=== PATIENT | male | born 1940 | race Caucasian/White ===

== ENCOUNTER 2020-10-29 20:23 | Emergency (ER) | payer MEDICARE, BC ==
--- NOTE | 2020-10-29 21:34 | EDM.PDOC ---
ED HPI GENERAL MEDICAL PROBLEM - General Stated Complaint: BLOODY NOSE Time Seen by Provider: 10/29/20 20:50 Source of Information: Reports: Patient, Family History Limitations: Reports: No Limitations - History of Present Illness INITIAL COMMENTS - FREE TEXT/NARRATIVE: c/o nosebleed pt with L nosebleed 1w ago, stopped on its own he has been bleeding all day from the L on ASA and Plavix x 15y no prior h/o nosebleeds coags and plts wnl tonight hgb 12.6 which is likely low altho no comparison BUN/creat 35/1.0, no comparison, also c/w volume loss today uses O2 via NC 24 hours/day no known trauma to nose - Related Data Allergies Allergy/AdvReac Type Severity Reaction Status Date / Time No Known Allergies Allergy Verified 10/29/20 20:36 Home Meds: Home Meds Albuterol [Ventolin HFA] 2 puff .XX Q4H PRN 10/29/20 [History] Arformoterol [Brovana] 15 mcg INH BID 10/29/20 [History] Aspirin [Adult Low Dose Aspirin EC] 81 mg PO DAILY 10/29/20 [History] Baclofen 5 - 10 mg PO TID 10/29/20 [History] Budesonide [Pulmicort] 0.5 mg IH BID 10/29/20 [History] Clopidogrel [Plavix] 75 mg PO DAILY 10/29/20 [History] Ferrous Gluconate 324 mg PO DAILY 10/29/20 [History] Furosemide [Lasix] 40 mg PO DAILY 10/29/20 [History] Losartan [Cozaar] 25 mg DAILY 10/29/20 [History] Pantoprazole [ProTONIX] 40 mg PO BEDTIME 10/29/20 [History] Pioglitazone [Actos] 30 mg PO DAILY 10/29/20 [History] Tiotropium [Spiriva] 18 mcg INH DAILY 10/29/20 [History] atorvaSTATin Calcium [Lipitor] 20 mg PO DAILY 10/29/20 [History] glipiZIDE [Glucotrol XL] 5 mg PO BRK 10/29/20 [History] traZODone 50 mg PO BEDTIME 10/29/20 [History] Past Medical History Cardiovascular History: Reports: Bypass, High Cholesterol, Hypertension, DC Other Cardiovascular History: 3 vessel bypass Respiratory History: Reports: COPD, Other (See Below) Other Respiratory History: Is on O2 @ 2L/NC @ home @ all times. Gastrointestinal History: Reports: GERD, GI Bleed, PUD Musculoskeletal History: Reports: Fracture Other Musculoskeletal History: hx ankle fx Psychiatric History: Reports: Addiction Other Psychiatric History: hx ETOH abuse Endocrine/Metabolic History: Reports: Diabetes, Type II, Obesity/BMI 30+ Hematologic History: Reports: Anemia, Anticoagulation Therapy, Blood Transfusion(s) - Infectious Disease History Infectious Disease History: Reports: Measles, Pertussis (Whooping Cough) - Past Surgical History HEENT Surgical History: Reports: Cataract Surgery Other HEENT Surgeries/Procedures: bilat cataract Cardiovascular Surgical History: Reports: Coronary Artery Bypass Other Cardiovascular Surgeries/Procedures: 3 vessel bypass GI Surgical History: Reports: Appendectomy, EGD Social & Family History - Family History Family Medical History: No Pertinent Family History - Tobacco Use Tobacco Use Status *Q: Former Tobacco User Years of Tobacco use: 60 Used Tobacco, but Quit: Yes Month/Year Tobacco Last Used: 2004 - Caffeine Use Caffeine Use: Reports: Coffee - Recreational Drug Use Recreational Drug Use: No ED ROS ENT - Review of Systems Review Of Systems: See Below Constitutional: Reports: No Symptoms HEENT: Reports: Nosebleed Respiratory: Reports: No Symptoms Endocrine: Reports: No Symptoms GI/Abdominal: Reports: No Symptoms : Reports: No Symptoms Musculoskeletal: Reports: No Symptoms Skin: Reports: No Symptoms Neurological: Reports: No Symptoms Psychiatric: Reports: No Symptoms Hematologic/Lymphatic: Reports: No Symptoms Immunologic: Reports: No Symptoms ED EXAM, ENT - Physical Exam Exam: See Below Exam Limited By: No Limitations General Appearance: Alert, WD/WN, No Apparent Distress Nose: Other (RBC dripping from L nares, nares patent, no swell, septum appears intact, likely superficial ulcer on lateral aspect of L ala, 5.5 Rhinorocket placed with 3 ml air, still dripping, packing placed lateral between ala and balloon, still dripped, 2 ml air removed and packing placed medially and 1.5 ml entered back, clamp placed on nose, present) Mouth/Throat: Normal Inspection Head: Atraumatic, Normocephalic Neck: Normal Inspection, Supple, Non-Tender, Full Range of Motion Respiratory/Chest: No Respiratory Distress, Lungs Clear GI/Abdominal: Soft, Non-Tender Back: Normal Inspection, Full Range of Motion Extremities: Normal Inspection, Normal Range of Motion, Non-Tender, No Pedal Edema Neurological: Alert, Oriented, CN II-XII Intact, Normal Cognition, No Motor/Sensory Deficits Psychiatric: Normal Affect, Normal Mood Skin: Warm, Dry, Intact, Normal Color, No Rash Lymphatic: No Adenopathy Course - Vital Signs Last Recorded V/S: Last Vital Signs Temp 36.7 C 10/29/20 20:23 Pulse 88 10/29/20 21:50 Resp 20 10/29/20 21:50 BP 124/87 10/29/20 21:50 Pulse Ox 91 L 10/29/20 21:50 - Orders/Labs/Meds Labs: Laboratory Tests 10/29/20 10/29/20 10/29/20 Range/Units 20:35 20:35 20:35 WBC 7.8 (3.2-10.1) x10-3/uL RBC 4.19 (3.90-5.90) x10(6)uL Hgb 12.6 L (12.9-17.7) g/dL Hct 39.6 (38.3-50.1) % MCV 94.6 (80.8-98.7) fL MCH 30.1 (27.0-33.3) pg MCHC 31.8 (28.7-35.3) g/dL RDW 14.8 (12.4-15.0) % Plt Count 151 (117-477) x10(3)uL MPV 9.6 (6.7-11.0) fL Neut % (Auto) 66.5 (40.3-71.8) % Lymph % (Auto) 18.2 (15.8-45.3) % [place] % (Auto) 12.3 (5.5-15.2) % Eos % (Auto) 2.6 (0.1-6.8) % Baso % (Auto) 0.4 (0.3-3.8) % Neut # (Auto) 5.2 (1.7-6.9) x10-3/uL Lymph # (Auto) 1.4 (0.5-4.5) x10-3/uL [place] # (Auto) 1.0 (0.0-1.2) x10-3/uL Eos # (Auto) 0.2 (0.0-0.6) x10-3/uL Baso # (Auto) 0.0 (0.0-0.3) x10-3/uL PT 11.2 H (9.0-11.1) sec INR 1.04 (1.00-1.24) Sodium 140 (135-145) mmol/L Potassium 4.8 (3.5-5.3) mmol/L Chloride 103 (100-110) mmol/L Carbon Dioxide 29 (21-32) mmol/L BUN 36 H (7-18) mg/dL Creatinine 1.0 (0.70-1.30) mg/dL Est Cr Clr Drug Dosing 50.40 mL/min Estimated GFR (MDRD) > 60 (>60) BUN/Creatinine Ratio 36.0 H (9-20) Glucose 129 H (80-116) mg/dL Calcium 8.6 (8.6-10.2) mg/dL Total Bilirubin 0.4 (0.1-1.3) mg/dL AST 15 (5-25) IU/L ALT 19 (12-36) U/L Alkaline Phosphatase 73 (56-112) IU/L Total Protein 7.0 (6.0-8.0) g/dL Albumin 3.7 (3.2-4.6) g/dL Globulin 3.3 g/dL Albumin/Globulin Ratio 1.1 - Re-Assessments/Exams Free Text/Narrative Re-Assessment/Exam: 10/29/20 21:34 epistaxis c/w meds (ASA, Plavix) and dry mucosa (winter, O2 via NC) pt cautioned he may need to come back at any time PCP in [place] as it is Fri evening now, pt advised to see PCP in 3d, however cautioned to return to ED at any time if balloon uncomfortable (not now) or bleeding reoccurs Departure - Departure Time of Disposition: 21:35 Disposition: Home, Self-Care 01 Condition: Good Clinical Impression: Left-sided epistaxis - Discharge Information *PRESCRIPTION DRUG MONITORING PROGRAM REVIEWED*: Not Applicable *COPY OF PRESCRIPTION DRUG MONITORING REPORT IN PATIENT [place]IL[place]: Not Applicable Instructions: Nosebleed, Adult Referrals: Arthur Pizarro MD [Primary Care Provider] - Forms: ED Department Discharge Additional Instructions: If there is additional bleeding, hold continuous pressure for 10 minutes. If it is still bleeding return to Emergency Department. If you are having other symptoms including discomfort, return to Emergency Department as sometimes the balloon and packing needs to be adjusted. Continue your oxygen via nasal cannula, put the prongs in your mouth if necessary. See your doctor in 3 days to remove balloon and for further recommendations. Sepsis Event Note (ED) - Evaluation Sepsis Screening Result: No Definite Risk - Focused Exam Vital Signs: Vital Signs Temp Pulse Resp BP Pulse Ox 10/29/20 21:50 88 20 124/87 91 L 10/29/20 20:23 36.7 C 106 H 24 H 156/78 H 91 L
== END 2020-10-29 22:07 | disposition home or self-care (01) ==
LOC: FB.ED 20:23
DX: R04.0 Epistaxis (principal); E78.00 Pure hypercholesterolemia, unspecified; I10 Essential (primary) hypertension; I25.2 Old myocardial infarction; J44.9 Chronic obstructive pulmonary disease, unspecified; K21.9 Gastro-esophageal reflux disease without esophagitis; E11.9 Type 2 diabetes mellitus without complications; E66.9 Obesity, unspecified; Z68.36 Body mass index [BMI] 36.0-36.9, adult; Z79.82 Long term (current) use of aspirin; Z79.02 Long term (current) use of antithrombotics/antiplatelets; Z79.84 Long term (current) use of oral hypoglycemic drugs; Z79.899 Other long term (current) drug therapy; Z95.1 Presence of aortocoronary bypass graft; Z87.891 Personal history of nicotine dependence
CPT/HCPCS: 30903; 36415; 80053; 85025; 85610; 99283

== ENCOUNTER 2021-04-05 11:24 | Observation (INO) | payer MEDICARE, BC ==
[2021-04-05] MEDS ORDERED: Nitroglycerin/D5W 25 MG/250 ML BOTTLE ONE (11:48)
--- NOTE | 2021-04-05 11:53 | EDM.PDOC ---
ED HPI GENERAL MEDICAL PROBLEM - General Stated Complaint: rapid response Time Seen by Provider: 04/05/21 11:24 Source of Information: Reports: Patient, EMS, EMS Notes Reviewed History Limitations: Reports: No Limitations - History of Present Illness INITIAL COMMENTS - FREE TEXT/NARRATIVE: c/o acute resp failure dx RLL mass 1m ago, scheduled to begin chemo tomorrow PET scan 5d ago showed involvement of mediastinum, hilum, abd lymph nodes, liver bone tissue type of lung CA not immediately available pt with inc'd swell LEs x 3d, weak and confused today, no pain, was quite sob, EMS called and pt had RR low 30s, PO 85-90% per EMS, was obtunded and barely alert on arrival at ED Rapid Response called, yet pt is DNR/DNI, 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 fairly quickly with initial pH 7.23 and pCO2 49 pt conversant and making good eye contact 30 min after arrival, talking complete sentences, cognitive intact, answering questions appropriately, pt confirmed that he wanted aggressive management altho both immediate and short term prognosis are quite poor h/o CABG 10y ago, however no PA per and was done will in past year EKG with injury pattern in V1-V3 with IVCD, sinus arrhythmia with rate 70, no comparison family aware that pt has resp/CV/hepatic/renal failure, that he has multisystem organ failure and that he may not survive today, they are okay with keeping him here altho BP has edged up and pt has become more alert nobles placed as 12:55p with no return urine, bladder scan is 0 - Related Data Allergies Allergy/AdvReac Type Severity Reaction Status Date / Time No Known Allergies Allergy Verified 04/05/21 11:48 Home Meds: Home Meds Albuterol [Ventolin HFA] 2 puff .XX Q4H PRN 10/29/20 [History] Arformoterol [Brovana] 15 mcg INH BID 10/29/20 [History] Aspirin [Adult Low Dose Aspirin EC] 81 mg PO DAILY 10/29/20 [History] Baclofen 5 - 10 mg PO TID 10/29/20 [History] Budesonide [Pulmicort] 0.5 mg IH BID 10/29/20 [History] Clopidogrel [Plavix] 75 mg PO DAILY 10/29/20 [History] Ferrous Gluconate 324 mg PO DAILY 10/29/20 [History] Furosemide [Lasix] 40 mg PO DAILY 10/29/20 [History] Losartan [Cozaar] 25 mg DAILY 10/29/20 [History] Pantoprazole [ProTONIX] 40 mg PO BEDTIME 10/29/20 [History] Pioglitazone [Actos] 30 mg PO DAILY 10/29/20 [History] Tiotropium [Spiriva] 18 mcg INH DAILY 10/29/20 [History] atorvaSTATin Calcium [Lipitor] 20 mg PO DAILY 10/29/20 [History] glipiZIDE [Glucotrol XL] 5 mg PO BRK 10/29/20 [History] traZODone 50 mg PO BEDTIME 10/29/20 [History] Past Medical History Cardiovascular History: Reports: Bypass, High Cholesterol, Hypertension, PA Other Cardiovascular History: 3 vessel bypass Respiratory History: Reports: COPD, Other (See Below) Other Respiratory History: Is on O2 @ 2L/NC @ home @ all times. Gastrointestinal History: Reports: GERD, GI Bleed, PUD Musculoskeletal History: Reports: Fracture Other Musculoskeletal History: hx ankle fx Psychiatric History: Reports: Addiction Other Psychiatric History: hx ETOH abuse Endocrine/Metabolic History: Reports: Diabetes, Type II, Obesity/BMI 30+ Hematologic History: Reports: Anemia, Anticoagulation Therapy, Blood Transfusion(s) - Infectious Disease History Infectious Disease History: Reports: Measles, Pertussis (Whooping Cough) - Past Surgical History HEENT Surgical History: Reports: Cataract Surgery Other HEENT Surgeries/Procedures: bilat cataract Cardiovascular Surgical History: Reports: Coronary Artery Bypass Other Cardiovascular Surgeries/Procedures: 3 vessel bypass GI Surgical History: Reports: Appendectomy, EGD Social & Family History - Family History Family Medical History: No Pertinent Family History - Caffeine Use Caffeine Use: Reports: Coffee ED ROS GENERAL - Review of Systems Review Of Systems: See Below Constitutional: Reports: No Symptoms HEENT: Reports: No Symptoms Respiratory: Reports: Shortness of Breath, Sputum. Denies: Pleuritic Chest Pain Cardiovascular: Reports: No Symptoms, Edema. Denies: Chest Pain Endocrine: Reports: No Symptoms GI/Abdominal: Reports: No Symptoms. Denies: Abdominal Pain, Nausea, Vomiting : Reports: No Symptoms Musculoskeletal: Reports: No Symptoms Skin: Reports: No Symptoms Neurological: Reports: No Symptoms Psychiatric: Reports: No Symptoms Hematologic/Lymphatic: Reports: No Symptoms Immunologic: Reports: No Symptoms ED EXAM, GENERAL - Physical Exam Exam: See Below General Appearance: Alert, Other (obtunded on arrival, then alert and O x 3 after one hour, no urine output after 500 ml NS, BP 92/48 at 1:10p without pressors) Ears: Hearing Grossly Normal Nose: Normal Inspection Throat/Mouth: Normal Inspection Head: Atraumatic, Normocephalic Neck: Normal Inspection, Supple. No: Lymphadenopathy (R) Respiratory/Chest: Other (crackles R base up 40%, no retractions, no purse lips, using accessory muscles, fatiguing on arrival, then doing better) GI/Abdominal: Normal Bowel Sounds, Soft, Non-Tender Back Exam: Normal Inspection, Full Range of Motion. No: CVA Tenderness (R), CVA Tenderness (L) Extremities: Other (1+ edema to groin b/l, symmetric, turgor UEs wnl) Neurological: Alert, Oriented, CN II-XII Intact, Normal Cognition, No Motor/Sensory Deficits Psychiatric: Normal Affect, Normal Mood, Other (cheerful, pleasant, optomistic yet also realistic) Skin Exam: Warm, Dry, Intact, Normal Color, No Rash Lymphatic: No Adenopathy #1 Interpretation EKG Date: 04/05/21 Time: 11:13 Rhythm: Other (sinus arrhythmia) Comparison: NA - No Prior EKG EKG Interpretation Comments: no comparison, PRWP, IVCD, inverted t-wave V1, dec'd ST V2-V3 c/w injury vs strain pattern Course - Vital Signs Last Recorded V/S: Last Vital Signs Temp 36.4 C 04/05/21 11:43 Pulse Resp BP Pulse Ox 100 04/05/21 11:45 - Orders/Labs/Meds Orders: Active Orders 24 hr Category Date Time Status Admission Status [Patient Status] [ADT] Routine ADT 04/05/21 15:32 Ordered EKG Documentation Completion [RC] ASDIRECTED Care 04/05/21 11:30 Active EKG Documentation Completion [RC] ASDIRECTED Care 04/05/21 14:15 Ordered Chest 1V Frontal [CR] Stat Exams 04/05/21 11:27 Taken BASIC METABOLIC PANEL,BMP [CHEM] Stat Lab 04/05/21 15:08 Ordered CULTURE BLOOD [BC] Urgent Lab 04/05/21 11:40 Received CULTURE BLOOD [BC] Urgent Lab 04/05/21 12:07 Received CULTURE SPUTUM + SMEAR [RM] Stat Lab 04/05/21 12:20 Ordered LACTIC ACID [CHEM] Stat Lab 04/05/21 15:08 Ordered TROPONIN I [CHEM] Stat Lab 04/05/21 15:08 Ordered URINALYSIS W/MICROSCOPIC [UA W/MICROSCOPIC] [URIN] Stat Lab 04/05/21 11:28 Ordered Dextrose 50% in Water Med 04/05/21 12:52 Active 50 ml IVPUSH ASDIRECTED PRN Glucagon,Human Recombinant [GlucaGen] Med 04/05/21 12:52 Active 1 mg IM ASDIRECTED PRN Sodium Chloride 0.9% [Normal Saline] 500 ml Med 04/05/21 12:36 Active IV .BOLUS Blood Culture x2 Reflex Set [OM.PC] Urgent Oth 04/05/21 11:28 Ordered EKG 12 Lead [EK] Routine Ther 04/05/21 11:28 Ordered EKG 12 Lead [EK] Routine Ther 04/05/21 14:15 Ordered Medication Orders Dextrose/Water (50% Dextrose In Water 50 Ml Syringe) 50 ml IVPUSH ASDIRECTED PRN PRN Reason: Hypoglycemia Glucagon (Glucagon,Human Recombinant 1 Mg Vial) 1 mg IM ASDIRECTED PRN PRN Reason: Hypoglycemia Sodium Chloride (Normal Saline) 500 mls @ 999 drops/hr IV .BOLUS ONE Stop: 04/05/21 20:06 Last Admin: 04/05/21 12:36 Dose: 999 drops/hr Documented by: Labs: Laboratory Tests 04/05/21 04/05/21 04/05/21 Range/Units 11:40 11:40 11:40 WBC 13.3 H (3.2-10.1) x10-3/uL RBC 4.56 (3.90-5.90) x10(6)uL Hgb 13.6 (12.9-17.7) g/dL Hct 42.2 (38.3-50.1) % MCV 92.4 (80.8-98.7) fL MCH 29.7 (27.0-33.3) pg MCHC 32.2 (28.7-35.3) g/dL RDW 14.7 (12.4-15.0) % Plt Count 284 (117-477) x10(3)uL MPV 9.5 (6.7-11.0) fL Add Manual Diff Yes Neutrophils % (Manual) 90 H (46-82) % Lymphocytes % (Manual) 4 L (13-37) % Monocytes % (Manual) 6 (4-12) % PT 17.0 H (9.0-11.1) sec INR 1.62 H (1.00-1.24) POC VBG pH (7.32-7.43) pH Units POC VBG pCO2 (41-51) mmHg POC VBG HCO3 (21-29) mmol/L VBG Base Excess (-2-3) mmol/L O2 Delivery Device Sodium 136 (135-145) mmol/L Potassium 7.3 H* D (3.5-5.3) mmol/L Chloride 94 L D (100-110) mmol/L Carbon Dioxide 20 L (21-32) mmol/L BUN 103 H D (7-18) mg/dL Creatinine 5.8 H* (0.70-1.30) mg/dL Est Cr Clr Drug Dosing TNP Estimated GFR (MDRD) 9 L (>60) BUN/Creatinine Ratio 17.8 (9-20) Glucose 158 H (80-116) mg/dL Lactic Acid (0.4-2.0) mmol/L Calcium 8.8 (8.6-10.2) mg/dL Total Bilirubin 1.3 (0.1-1.3) mg/dL AST 489 H* D (5-25) IU/L ALT 195 H* D (12-36) U/L Alkaline Phosphatase 378 H (56-112) IU/L Troponin I (4.0-60.3) pg/mL C-Reactive Protein (0.5-0.9) mg/dL NT-Pro-B Natriuret Pep (<=450) pg/mL Total Protein 7.4 (6.0-8.0) g/dL Albumin 2.6 L (3.2-4.6) g/dL Globulin 4.8 g/dL Albumin/Globulin Ratio 0.5 04/05/21 04/05/21 04/05/21 Range/Units 11:40 12:07 12:10 WBC (3.2-10.1) x10-3/uL RBC (3.90-5.90) x10(6)uL Hgb (12.9-17.7) g/dL Hct (38.3-50.1) % MCV (80.8-98.7) fL MCH (27.0-33.3) pg MCHC (28.7-35.3) g/dL RDW (12.4-15.0) % Plt Count (117-477) x10(3)uL MPV (6.7-11.0) fL Add Manual Diff Neutrophils % (Manual) (46-82) % Lymphocytes % (Manual) (13-37) % Monocytes % (Manual) (4-12) % PT (9.0-11.1) sec INR (1.00-1.24) POC VBG pH 7.23 L* (7.32-7.43) pH Units POC VBG pCO2 49 (41-51) mmHg POC VBG HCO3 21 (21-29) mmol/L VBG Base Excess -7 L (-2-3) mmol/L O2 Delivery Device Non rebr mask Sodium (135-145) mmol/L Potassium (3.5-5.3) mmol/L Chloride (100-110) mmol/L Carbon Dioxide (21-32) mmol/L BUN (7-18) mg/dL Creatinine (0.70-1.30) mg/dL Est Cr Clr Drug Dosing Estimated GFR (MDRD) (>60) BUN/Creatinine Ratio (9-20) Glucose (80-116) mg/dL Lactic Acid 4.7 H* (0.4-2.0) mmol/L Calcium (8.6-10.2) mg/dL Total Bilirubin (0.1-1.3) mg/dL AST (5-25) IU/L ALT (12-36) U/L Alkaline Phosphatase (56-112) IU/L Troponin I 546.5 H* (4.0-60.3) pg/mL C-Reactive Protein 40.4 H* (0.5-0.9) mg/dL NT-Pro-B Natriuret Pep 04957 H* (<=450) pg/mL Total Protein (6.0-8.0) g/dL Albumin (3.2-4.6) g/dL Globulin g/dL Albumin/Globulin Ratio 04/05/ Range/Units 13:08 WBC (3.2-10.1) x10-3/uL RBC (3.90-5.90) x10(6)uL Hgb (12.9-17.7) g/dL Hct (38.3-50.1) % MCV (80.8-98.7) fL MCH (27.0-33.3) pg MCHC (28.7-35.3) g/dL RDW (12.4-15.0) % Plt Count (117-477) x10(3)uL MPV (6.7-11.0) fL Add Manual Diff Neutrophils % (Manual) (46-82) % Lymphocytes % (Manual) (13-37) % Monocytes % (Manual) (4-12) % PT (9.0-11.1) sec INR (1.00-1.24) POC VBG pH 7.22 L* (7.32-7.43) pH Units POC VBG pCO2 58 H (41-51) mmHg POC VBG HCO3 23 (21-29) mmol/L VBG Base Excess -5 L (-2-3) mmol/L O2 Delivery Device Non rebr mask Sodium (135-145) mmol/L Potassium (3.5-5.3) mmol/L Chloride (100-110) mmol/L Carbon Dioxide (21-32) mmol/L BUN (7-18) mg/dL Creatinine (0.70-1.30) mg/dL Est Cr Clr Drug Dosing Estimated GFR (MDRD) (>60) BUN/Creatinine Ratio (9-20) Glucose (80-116) mg/dL Lactic Acid (0.4-2.0) mmol/L Calcium (8.6-10.2) mg/dL Total Bilirubin (0.1-1.3) mg/dL AST (5-25) IU/L ALT (12-36) U/L Alkaline Phosphatase (56-112) IU/L Troponin I (4.0-60.3) pg/mL C-Reactive Protein (0.5-0.9) mg/dL NT-Pro-B Natriuret Pep (<=450) pg/mL Total Protein (6.0-8.0) g/dL Albumin (3.2-4.6) g/dL Globulin g/dL Albumin/Globulin Ratio Meds: Medications Generic Name Dose Route Start Last Admin Trade Name Enzo PRN Reason Stop Dose Admin Dextrose/Water 50 ml 04/05/21 12:52 50% Dextrose In Water 50 Ml Syringe IVPUSH ASDIRECTED PRN Hypoglycemia Glucagon 1 mg 04/05/21 12:52 Glucagon,Human Recombinant 1 Mg Vial IM ASDIRECTED PRN Hypoglycemia Sodium Chloride 500 mls @ 999 drops/hr 04/05/21 12:36 04/05/21 12:36 Normal Saline IV 04/05/21 20:06 999 drops/hr .BOLUS ONE Administration Discontinued Medications Generic Name Dose Route Start Last Admin Trade Name Enzo PRN Reason Stop Dose Admin Dextrose/Water 50 ml 04/05/21 12:51 04/05/21 13:45 50% Dextrose In Water 50 Ml Syringe IVPUSH 04/05/21 12:52 50 ml ONETIME ONE Administration Nitroglycerin/Dextrose Confirm 04/05/21 11:48 Nitroglycerin 25 Mg/D5w 250 Ml Administered 04/05/21 11:49 Dose 25 mg in 250 mls @ as directed .ROUTE .STK-MED ONE Piperacillin Sod/Tazobactam 100 mls @ 200 mls/hr 04/05/21 12:18 04/05/21 12:39 Sod 4.5 gm/ Sodium Chloride IV 04/05/21 12:47 200 mls/hr NOW ONE Administration Sodium Chloride 500 mls @ 500 mls/hr 04/05/21 13:01 04/05/21 13:01 Normal Saline IV 04/05/21 14:00 500 mls/hr .BOLUS ONE Administration Sodium Chloride 1,000 mls @ 999 mls/hr 04/05/21 13:17 04/05/21 13:45 Normal Saline IV 04/05/21 14:17 999 mls/hr .BOLUS ONE Administration Insulin Human Regular 10 unit 04/05/21 12:52 04/05/21 13:45 Insulin Regular, Human 100 Units/Ml 3 Ml Vial IV 04/05/21 12:53 10 units ONETIME ONE Administration Lidocaine HCl Confirm 04/05/21 12:51 Lidocaine 2% Hcl 6 Ml Jel.Pf.Cassie Administered 04/05/21 12:52 Dose 6 ml .ROUTE .STK-MED ONE Sodium Polystyrene Sulfonate 15 gm 04/05/21 13:42 04/05/21 13:45 Sodium Polystyrene Sulfonate 15 Gm/60 Ml Susp 60 Ml Bot PO 04/05/21 13:43 15 gm ONETIME STA Administration - Re-Assessments/Exams Free Text/Narrative Re-Assessment/Exam: 04/05/21 12:52 pt with multisystem organ failure, pt with very poor outlook and and large supportive family (niece, nephew, sister at bedside) that pt was not expected to survive and may not be stable enough to transfer to [facility] bicycle inspector at [facility] was able to reach tab builder, however she was called away to a code and I just spoke with Dr Aguero from ED, he will speak with tab builder when she is available and they will call back 04/05/21 15:27 bicycle inspector at [facility] called back an hour ago to say that Dr Etienne tab builder has had multiple in-house emergencies and has not been able to return my call, bicycle inspector suggested admitting pt directly to floor as pt has stabilized somewhat altho still no UA after 2 liters NS pt has been alert and conversant, multiple family members are present asked again re admitting him here and Dr Sanders accepted pt to obs bed with plan on going on hospice tomorrow while pt has stabilized, his multi-system organ failure is not reversible, still anuric pt d/w [facility] ED doc Dr Perez 3.5h ago who asked us to stabilize pt here while waiting to here from hospitalist, 1h ago the [facility] bicycle inspector was going to get him on the phone a 2nd time put he did not picking tech after holding for 5 minutes and has not called back in the past hour as pt's condition is terminal and is requesting admission here, will proceed accordingly, he continues to be DNR/DNI 04/05/21 15:33 pt did just produce 10 ml of urine, sent to lab for u/a Departure - Departure Time of Disposition: 15:35 Disposition: Refer to Observation Condition: Critical Clinical Impression: Acute respiratory failure, Acute respiratory acidosis, Hypercapnia, Multisystem organ failure, RLL pneumonia, Metastatic lung cancer (metastasis from lung to other site), NSTEMI (non-ST elevated myocardial infarction), Renal failure, acute, Hyperkalemia, Hypovolemic shock, Elevated INR, CHF exacerbation - Discharge Information *PRESCRIPTION DRUG MONITORING PROGRAM REVIEWED*: Not Applicable *COPY OF PRESCRIPTION DRUG MONITORING REPORT IN PATIENT CAMILO: Not Applicable Referrals: PCP,Not In Area [Primary Care Provider] - Sepsis Event Note (ED) - Evaluation Sepsis Screening Result: No Definite Risk - Focused Exam Vital Signs: Vital Signs Temp Pulse Ox 04/05/21 11:45 100 04/05/21 11:43 36.4 C - My Orders Last 24 Hours: My Active Orders 04/05/21 11:27 Chest 1V Frontal [CR] Stat 04/05/21 11:28 URINALYSIS W/MICROSCOPIC [UA W/MICROSCOPIC] [URIN] Stat Blood Culture x2 Reflex Set [OM.PC] Urgent EKG 12 Lead [EK] Routine 04/05/21 11:30 EKG Documentation Completion [RC] ASDIRECTED 04/05/21 11:40 CULTURE BLOOD [BC] Urgent 04/05/21 12:07 CULTURE BLOOD [BC] Urgent 04/05/21 12:20 CULTURE SPUTUM + SMEAR [RM] Stat 04/05/21 12:36 Sodium Chloride 0.9% [Normal Saline] 500 ml IV .BOLUS 04/05/21 12:52 Dextrose 50% in Water 50 ml IVPUSH ASDIRECTED PRN Glucagon,Human Recombinant [GlucaGen] 1 mg IM ASDIRECTED PRN 04/05/21 14:15 EKG Documentation Completion [RC] ASDIRECTED EKG 12 Lead [EK] Routine 04/05/21 15:08 BASIC METABOLIC PANEL,BMP [CHEM] Stat LACTIC ACID [CHEM] Stat TROPONIN I [CHEM] Stat 04/05/21 15:32 Admission Status [Patient Status] [ADT] Routine - Assessment/Plan Last 24 Hours: My Active Orders 04/05/21 11:27 Chest 1V Frontal [CR] Stat 04/05/21 11:28 URINALYSIS W/MICROSCOPIC [UA W/MICROSCOPIC] [URIN] Stat Blood Culture x2 Reflex Set [OM.PC] Urgent EKG 12 Lead [EK] Routine 04/05/21 11:30 EKG Documentation Completion [RC] ASDIRECTED 04/05/21 11:40 CULTURE BLOOD [BC] Urgent 04/05/21 12:07 CULTURE BLOOD [BC] Urgent 04/05/21 12:20 CULTURE SPUTUM + SMEAR [RM] Stat 04/05/21 12:36 Sodium Chloride 0.9% [Normal Saline] 500 ml IV .BOLUS 04/05/21 12:52 Dextrose 50% in Water 50 ml IVPUSH ASDIRECTED PRN Glucagon,Human Recombinant [GlucaGen] 1 mg IM ASDIRECTED PRN 04/05/21 14:15 EKG Documentation Completion [RC] ASDIRECTED EKG 12 Lead [EK] Routine 04/05/21 15:08 BASIC METABOLIC PANEL,BMP [CHEM] Stat LACTIC ACID [CHEM] Stat TROPONIN I [CHEM] Stat 04/05/21 15:32 Admission Status [Patient Status] [ADT] Routine
[2021-04-05] MEDS ORDERED: Piperacillin/Tazobactam 4.5 GM in Sodium Chloride 0.9% 100 ML IV ONE (12:18)
[2021-04-05 12:27] LABS: BASE EXCESS VENOUS,POC -7 mmol/L (-2-3); HCO3 VENOUS,POC 21 mmol/L (21-29); PCO2 VENOUS,POC 49 mmHg (41-51); PH VENOUS,POC 7.23 pH Units (7.32-7.43)
[2021-04-05] MEDS ORDERED: Sodium Chloride 0.9% 500 ML IV ONE ×2 (12:36→13:01)
[2021-04-05] MEDS ORDERED: Lidocaine 2% HCl 6 ML JEL.PF.APP ONE (12:51)
[2021-04-05] MEDS ORDERED: 50% Dextrose in Water 50 ML Syringe IVPUSH ONE (12:51)
[2021-04-05] MEDS ORDERED: Sodium Polystyrene Sulfonate 15 GM/60 ML Susp 60 ML Bot PO ONE (12:51)
[2021-04-05] MEDS ORDERED: 50% Dextrose in Water 50 ML Syringe IVPUSH PRN (12:52)
[2021-04-05] MEDS ORDERED: Insulin Regular, Human 100 Units/ML 3 ML Vial IV ONE (12:52)
[2021-04-05] MEDS ORDERED: Glucagon,Human Recombinant 1 MG Vial IM PRN (12:52)
[2021-04-05 13:16] LABS: BASE EXCESS VENOUS,POC -5 mmol/L (-2-3); HCO3 VENOUS,POC 23 mmol/L (21-29); PCO2 VENOUS,POC 58 mmHg (41-51); PH VENOUS,POC 7.22 pH Units (7.32-7.43)
[2021-04-05] MEDS ORDERED: Sodium Chloride 0.9% 1,000 ML IV ONE (13:17)
[2021-04-05] MEDS ORDERED: Sodium Polystyrene Sulfonate 15 GM/60 ML Susp 60 ML Bot PO STA (13:42)
--- NOTE | 2021-04-05 15:06 | PCM.SN.2 ---
- Free Text/Narrative Note: ANESTHESIA SERVICES Date: 04/05/2021 Time: 1131 to 1145 Dx: Acute respiratory distress, Hypoxia and Very Poor Venous Access Rx: Placement of a Peripheral Venous catheter and assistance with BiPap implementation. I was called to the ED department for a Rapid Response Alert. I found a vein in his right ACF area and prepped the site with alcohol wipes X 3. Using a BD Insyte Autoguard BC Winged 20 Ga. X 1.16 In., I inserted and advanced the catheter times one attempt. I was able to draw off 12 ml's of blood for lab work. The catheter was flushed easily and an Op-Site dressing was applied. I did assist the ED RN with placement of the BiPap mask and trouble shoot for leaks. The patient did respond quite well to this. Rhett King CRNA, A
[2021-04-05] MEDS ORDERED: Lanolin/Mineral Oil/Petrolatum Ophth Oint 3.5 GM Tube EYEBOTH PRN (16:07)
[2021-04-05] MEDS ORDERED: Hyoscyamine 0.125 MG Tab.SL SL PRN (16:07)
[2021-04-05] MEDS ORDERED: Acetaminophen 325 MG Tab PO PRN (16:07)
[2021-04-05] MEDS ORDERED: Ondansetron 4 MG Tab.DIS PO PRN (16:07)
[2021-04-05] MEDS ORDERED: Albuterol/Ipratropium 3.0-0.5 MG/3 ML Neb Soln INH PRN (16:20)
--- NOTE | 2021-04-05 16:57 | PCM.HP.2 ---
H&P History of Present Illness - General Date of Service: 04/05/21 Admit Problem/Dx: Admission Diagnosis/Problem Admission Diagnosis/Problem Respiratory failure with hypercapnia Source of Information: Patient, Provider - History of Present Illness Initial Comments - Free Text/Narative: Wily presented to ER today for worsening shortness of breath and back pain, rapid response was called by EMS enroute and was in acute respiratory failure, heart/liver and kidney failure. ABG showed ph 7.2, K 7.7, Cr 5.2, Troponin 546, proBNP 93347, WBC 13.3. EKG showed injury pattern in V1-V3, no comparison. He was due to start chemo today for RLL lung mass 1 month ago, PET scan 5 days ago showed involvement of mediastinum, hilum, abdominal lymph nodes, liver and bone. Had more shortness of breath, leg swelling and back pain for the past 3 days, no appetite, not eating. He did take his medications today. Yoli was placed in ER, has not had a bowel movement today. He is DNR/DNI, he was in ER most of day, with multiorgan failure and lung cancer with mets, he and his requested to stay here and go on hospice. Hospice was contacted and they will come in tomorrow to do initial visit with Wily and his family. - Related Data Allergies/Adverse Reactions: Allergies Allergy/AdvReac Type Severity Reaction Status Date / Time No Known Allergies Allergy Verified 04/05/21 11:48 Home Medications: Home Meds Albuterol [Ventolin HFA] 2 puff .XX Q4H PRN 10/29/20 [History] Arformoterol [Brovana] 15 mcg INH BID 10/29/20 [History] Aspirin [Adult Low Dose Aspirin EC] 81 mg PO DAILY 10/29/20 [History] Baclofen 5 - 10 mg PO TID 10/29/20 [History] Budesonide [Pulmicort] 0.5 mg IH BID 10/29/20 [History] Clopidogrel [Plavix] 75 mg PO DAILY 10/29/20 [History] Ferrous Gluconate 324 mg PO DAILY 10/29/20 [History] Furosemide [Lasix] 40 mg PO DAILY 10/29/20 [History] Losartan [Cozaar] 25 mg DAILY 10/29/20 [History] Pantoprazole [ProTONIX] 40 mg PO BEDTIME 10/29/20 [History] Pioglitazone [Actos] 30 mg PO DAILY 10/29/20 [History] Tiotropium [Spiriva] 18 mcg INH DAILY 10/29/20 [History] atorvaSTATin Calcium [Lipitor] 20 mg PO DAILY 10/29/20 [History] glipiZIDE [Glucotrol XL] 5 mg PO BRK 10/29/20 [History] traZODone 50 mg PO BEDTIME 10/29/20 [History] Past Medical History Cardiovascular History: Reports: Bypass, High Cholesterol, Hypertension, [place] Other Cardiovascular History: 3 vessel bypass Respiratory History: Reports: COPD, Other (See Below) Other Respiratory History: Is on O2 @ 2L/NC @ home @ all times. Gastrointestinal History: Reports: GERD, GI Bleed, PUD Musculoskeletal History: Reports: Fracture Other Musculoskeletal History: hx ankle fx Psychiatric History: Reports: Addiction Other Psychiatric History: hx ETOH abuse Endocrine/Metabolic History: Reports: Diabetes, Type II, Obesity/BMI 30+ Hematologic History: Reports: Anemia, Anticoagulation Therapy, Blood Transfusion(s) Oncologic (Cancer) History: Reports: Lung - Infectious Disease History Infectious Disease History: Reports: Measles, Pertussis (Whooping Cough) - Past Surgical History HEENT Surgical History: Reports: Cataract Surgery Other HEENT Surgeries/Procedures: bilat cataract Cardiovascular Surgical History: Reports: Coronary Artery Bypass Other Cardiovascular Surgeries/Procedures: 3 vessel bypass GI Surgical History: Reports: Appendectomy, EGD Social & Family History - Family History Family Medical History: No Pertinent Family History - Caffeine Use Caffeine Use: Reports: Coffee H&P Review of Systems - Review of Systems: Review Of Systems: See Below Pulmonary: Reports: Shortness of Breath Cardiovascular: Reports: Chest Pain, Edema Gastrointestinal: Reports: No Symptoms Genitourinary: Reports: No Symptoms Musculoskeletal: Reports: Back Pain Skin: Reports: Mottled Hematologic/Lymphatic: Reports: Easy Bruising Exam - Exam Exam: See Below - Vital Signs Vital Signs: Last Vital Signs Temp 97.6 F 04/05/21 11:43 Pulse Resp BP Pulse Ox 100 04/05/21 11:45 Weight: 238 lb - Exam Quality Assessment: Supplemental Oxygen, Urinary Catheter General: Alert, Oriented, Cooperative, Moderate Distress HEENT: PERRLA, Conjunctiva Clear, EOMI, Hearing Intact, Mucosa Moist & Sigel Neck: Trachea Midline Lungs: Decreased Breath Sounds, Crackles. No: Normal Respiratory Effort (increased), Wheezing Cardiovascular: Regular Rate, Regular Rhythm (distant) GI/Abdominal Exam: Normal Bowel Sounds, Soft, Non-Tender, No Distention (Male) Exam: Deferred Rectal (Males) Exam: Deferred Extremities: Pedal Edema, Mottled Peripheral Pulses: 2+: Radial (L), Radial (R) - Patient Data Lab Results Last 24 hrs: Laboratory Results - last 24 hr 04/05/21 04/05/21 04/05/21 Range/Units 11:40 11:40 11:40 WBC 13.3 H (3.2-10.1) x10-3/uL RBC 4.56 (3.90-5.90) x10(6)uL Hgb 13.6 (12.9-17.7) g/dL Hct 42.2 (38.3-50.1) % MCV 92.4 (80.8-98.7) fL MCH 29.7 (27.0-33.3) pg MCHC 32.2 (28.7-35.3) g/dL RDW 14.7 (12.4-15.0) % Plt Count 284 (117-477) x10(3)uL MPV 9.5 (6.7-11.0) fL Add Manual Diff Yes Neutrophils % (Manual) 90 H (46-82) % Lymphocytes % (Manual) 4 L (13-37) % Monocytes % (Manual) 6 (4-12) % PT 17.0 H (9.0-11.1) sec INR 1.62 H (1.00-1.24) POC VBG pH (7.32-7.43) pH Units POC VBG pCO2 (41-51) mmHg POC VBG HCO3 (21-29) mmol/L VBG Base Excess (-2-3) mmol/L O2 Delivery Device Sodium 136 (135-145) mmol/L Potassium 7.3 H* D (3.5-5.3) mmol/L Chloride 94 L D (100-110) mmol/L Carbon Dioxide 20 L (21-32) mmol/L BUN 103 H D (7-18) mg/dL Creatinine 5.8 H* (0.70-1.30) mg/dL Est Cr Clr Drug Dosing TNP Estimated GFR (MDRD) 9 L (>60) BUN/Creatinine Ratio 17.8 (9-20) Glucose 158 H (80-116) mg/dL Lactic Acid (0.4-2.0) mmol/L Calcium 8.8 (8.6-10.2) mg/dL Total Bilirubin 1.3 (0.1-1.3) mg/dL AST 489 H* D (5-25) IU/L ALT 195 H* D (12-36) U/L Alkaline Phosphatase 378 H (56-112) IU/L Troponin I (4.0-60.3) pg/mL C-Reactive Protein (0.5-0.9) mg/dL NT-Pro-B Natriuret Pep (<=450) pg/mL Total Protein 7.4 (6.0-8.0) g/dL Albumin 2.6 L (3.2-4.6) g/dL Globulin 4.8 g/dL Albumin/Globulin Ratio 0.5 Urine Color (YELLOW) Urine Appearance (CLEAR) Urine pH (5.0-6.5) Ur Specific [place] (1.010-1.025) Urine Protein (NEGATIVE) mg/dL Urine Glucose (UA) (NORMAL) mg/dL Urine Ketones (NEGATIVE) mg/dL Urine Occult Blood (NEGATIVE) Urine Nitrite (NEGATIVE) Urine Bilirubin (NEGATIVE) Urine Urobilinogen (NEGATIVE) mg/dL Ur Leukocyte Esterase (NEGATIVE) U Hyaline Cast (Auto) (NS) Urine RBC (0-5) Urine WBC (0-5) Ur Squamous Epith Cells (NS,R,O) Urine Bacteria (NS) 04/05/21 04/05/21 04/05/21 Range/Units 11:40 12:07 12:10 WBC (3.2-10.1) x10-3/uL RBC (3.90-5.90) x10(6)uL Hgb (12.9-17.7) g/dL Hct (38.3-50.1) % MCV (80.8-98.7) fL MCH (27.0-33.3) pg MCHC (28.7-35.3) g/dL RDW (12.4-15.0) % Plt Count (117-477) x10(3)uL MPV (6.7-11.0) fL Add Manual Diff Neutrophils % (Manual) (46-82) % Lymphocytes % (Manual) (13-37) % Monocytes % (Manual) (4-12) % PT (9.0-11.1) sec INR (1.00-1.24) POC VBG pH 7.23 L* (7.32-7.43) pH Units POC VBG pCO2 49 (41-51) mmHg POC VBG HCO3 21 (21-29) mmol/L VBG Base Excess -7 L (-2-3) mmol/L O2 Delivery Device Non rebr mask Sodium (135-145) mmol/L Potassium (3.5-5.3) mmol/L Chloride (100-110) mmol/L Carbon Dioxide (21-32) mmol/L BUN (7-18) mg/dL Creatinine (0.70-1.30) mg/dL Est Cr Clr Drug Dosing Estimated GFR (MDRD) (>60) BUN/Creatinine Ratio (9-20) Glucose (80-116) mg/dL Lactic Acid 4.7 H* (0.4-2.0) mmol/L Calcium (8.6-10.2) mg/dL Total Bilirubin (0.1-1.3) mg/dL AST (5-25) IU/L ALT (12-36) U/L Alkaline Phosphatase (56-112) IU/L Troponin I 546.5 H* (4.0-60.3) pg/mL C-Reactive Protein 40.4 H* (0.5-0.9) mg/dL NT-Pro-B Natriuret Pep 18005 H* (<=450) pg/mL Total Protein (6.0-8.0) g/dL Albumin (3.2-4.6) g/dL Globulin g/dL Albumin/Globulin Ratio Urine Color (YELLOW) Urine Appearance (CLEAR) Urine pH (5.0-6.5) Ur Specific [place] (1.010-1.025) Urine Protein (NEGATIVE) mg/dL Urine Glucose (UA) (NORMAL) mg/dL Urine Ketones (NEGATIVE) mg/dL Urine Occult Blood (NEGATIVE) Urine Nitrite (NEGATIVE) Urine Bilirubin (NEGATIVE) Urine Urobilinogen (NEGATIVE) mg/dL Ur Leukocyte Esterase (NEGATIVE) U Hyaline Cast (Auto) (NS) Urine RBC (0-5) Urine WBC (0-5) Ur Squamous Epith Cells (NS,R,O) Urine Bacteria (NS) 04/05/21 04/05/21 04/05/21 Range/Units 13:08 15:27 15:27 WBC (3.2-10.1) x10-3/uL RBC (3.90-5.90) x10(6)uL Hgb (12.9-17.7) g/dL Hct (38.3-50.1) % MCV (80.8-98.7) fL MCH (27.0-33.3) pg MCHC (28.7-35.3) g/dL RDW (12.4-15.0) % Plt Count (117-477) x10(3)uL MPV (6.7-11.0) fL Add Manual Diff Neutrophils % (Manual) (46-82) % Lymphocytes % (Manual) (13-37) % Monocytes % (Manual) (4-12) % PT (9.0-11.1) sec INR (1.00-1.24) POC VBG pH 7.22 L* (7.32-7.43) pH Units POC VBG pCO2 58 H (41-51) mmHg POC VBG HCO3 23 (21-29) mmol/L VBG Base Excess -5 L (-2-3) mmol/L O2 Delivery Device Non rebr mask Sodium 136 (135-145) mmol/L Potassium 6.6 H* (3.5-5.3) mmol/L Chloride 96 L (100-110) mmol/L Carbon Dioxide 24 (21-32) mmol/L BUN 98 H (7-18) mg/dL Creatinine 5.2 H* (0.70-1.30) mg/dL Est Cr Clr Drug Dosing TNP Estimated GFR (MDRD) 11 L (>60) BUN/Creatinine Ratio 18.8 (9-20) Glucose 237 H (80-116) mg/dL Lactic Acid (0.4-2.0) mmol/L Calcium 7.8 L (8.6-10.2) mg/dL Total Bilirubin (0.1-1.3) mg/dL AST (5-25) IU/L ALT (12-36) U/L Alkaline Phosphatase (56-112) IU/L Troponin I 341.3 H* (4.0-60.3) pg/mL C-Reactive Protein (0.5-0.9) mg/dL NT-Pro-B Natriuret Pep (<=450) pg/mL Total Protein (6.0-8.0) g/dL Albumin (3.2-4.6) g/dL Globulin g/dL Albumin/Globulin Ratio Urine Color (YELLOW) Urine Appearance (CLEAR) Urine pH (5.0-6.5) Ur Specific [place] (1.010-1.025) Urine Protein (NEGATIVE) mg/dL Urine Glucose (UA) (NORMAL) mg/dL Urine Ketones (NEGATIVE) mg/dL Urine Occult Blood (NEGATIVE) Urine Nitrite (NEGATIVE) Urine Bilirubin (NEGATIVE) Urine Urobilinogen (NEGATIVE) mg/dL Ur Leukocyte Esterase (NEGATIVE) U Hyaline Cast (Auto) (NS) Urine RBC (0-5) Urine WBC (0-5) Ur Squamous Epith Cells (NS,R,O) Urine Bacteria (NS) 04/05/21 04/05/21 Range/Units 15:27 15:33 WBC (3.2-10.1) x10-3/uL RBC (3.90-5.90) x10(6)uL Hgb (12.9-17.7) g/dL Hct (38.3-50.1) % MCV (80.8-98.7) fL MCH (27.0-33.3) pg MCHC (28.7-35.3) g/dL RDW (12.4-15.0) % Plt Count (117-477) x10(3)uL MPV (6.7-11.0) fL Add Manual Diff Neutrophils % (Manual) (46-82) % Lymphocytes % (Manual) (13-37) % Monocytes % (Manual) (4-12) % PT (9.0-11.1) sec INR (1.00-1.24) POC VBG pH (7.32-7.43) pH Units POC VBG pCO2 (41-51) mmHg POC VBG HCO3 (21-29) mmol/L VBG Base Excess (-2-3) mmol/L O2 Delivery Device Sodium (135-145) mmol/L Potassium (3.5-5.3) mmol/L Chloride (100-110) mmol/L Carbon Dioxide (21-32) mmol/L BUN (7-18) mg/dL Creatinine (0.70-1.30) mg/dL Est Cr Clr Drug Dosing Estimated GFR (MDRD) (>60) BUN/Creatinine Ratio (9-20) Glucose (80-116) mg/dL Lactic Acid 2.5 H* (0.4-2.0) mmol/L Calcium (8.6-10.2) mg/dL Total Bilirubin (0.1-1.3) mg/dL AST (5-25) IU/L ALT (12-36) U/L Alkaline Phosphatase (56-112) IU/L Troponin I (4.0-60.3) pg/mL C-Reactive Protein (0.5-0.9) mg/dL NT-Pro-B Natriuret Pep (<=450) pg/mL Total Protein (6.0-8.0) g/dL Albumin (3.2-4.6) g/dL Globulin g/dL Albumin/Globulin Ratio Urine Color Yellow (YELLOW) Urine Appearance Slightly cloudy (CLEAR) Urine pH 5.0 (5.0-6.5) Ur Specific [place] 1.015 (1.010-1.025) Urine Protein 30 H (NEGATIVE) mg/dL Urine Glucose (UA) Normal (NORMAL) mg/dL Urine Ketones Negative (NEGATIVE) mg/dL Urine Occult Blood Moderate H (NEGATIVE) Urine Nitrite Negative (NEGATIVE) Urine Bilirubin Small H (NEGATIVE) Urine Urobilinogen Normal (NEGATIVE) mg/dL Ur Leukocyte Esterase Negative (NEGATIVE) U Hyaline Cast (Auto) Few H (NS) Urine RBC 5-10 H (0-5) Urine WBC 5-10 H (0-5) Ur Squamous Epith Cells Few H (NS,R,O) Urine Bacteria Many H (NS) Result Diagrams: 04/05/21 11:40 04/05/21 15:27 Sepsis Event Note - Evaluation Sepsis Screening Result: No Definite Risk - Focused Exam Vital Signs: Vital Signs Temp Pulse Ox 04/05/21 11:45 100 04/05/21 11:43 97.6 F *Q Meaningful Use (ADM) - VTE *Q VTE Mechanical Contraindications *Q: At Risk for Falls - VTE Risk Assess *Q Each Risk Factor Represents 1 Point: None Total Score 1 Point Risk Factors: 0 Each Risk Factor Represents 2 Points: None Total Score 2 Point Risk Factors: 0 Each Risk Factor Represents 3 Points: Age 75 Years or Greater Total Score 3 Point Risk Factors: 3 Each Risk Factor Represents 5 Points: None Total Score 5 Point Risk Factors: 0 Venous Thromboembolism Risk Factor Score *Q: 3 - Problem List (1) Metastatic lung cancer (metastasis from lung to other site) SNOMED Code(s): 58201104, 024747667 ICD Code: C34.90 - MALIGNANT NEOPLASM OF UNSP PART OF UNSP BRONCHUS OR LUNG Status: Acute Current Visit: Yes Onset Date: ~02/2021 Qualifiers: Laterality: right Qualified Code(s): C34.91 - Malignant neoplasm of unspecified part of right bronchus or lung (2) Multisystem organ failure SNOMED Code(s): 11313567 ICD Code: [id number] - Status: Acute Current Visit: Yes (3) NSTEMI (non-ST elevated myocardial infarction) SNOMED Code(s): 70930137 ICD Code: I21.4 - NON-ST ELEVATION (NSTEMI) MYOCARDIAL INFARCTION Status: Acute Current Visit: Yes Problem List Initiated/Reviewed/Updated: Yes Orders Last 24hrs: Active Orders 24 hr Category Date Time Status Admission Status [Patient Status] [ADT] Routine ADT 04/05/21 15:32 Active Activity as Tolerated [RC] .Routine Care 04/05/21 16:15 Ordered Communication Order [RC] Per Unit Routine Care 04/05/21 16:17 Ordered EKG Documentation Completion [RC] ASDIRECTED Care 04/05/21 11:30 Active EKG Documentation Completion [RC] ASDIRECTED Care 04/05/21 14:15 Active Oxygen Therapy [RC] PRN Care 04/05/21 16:10 Ordered Turn and Reposition [RC] Q2HR Care 04/05/21 16:17 Ordered Regular Diet [DIET] Diet 04/05/21 Dinner Ordered Chest 1V Frontal [CR] Stat Exams 04/05/21 11:27 Taken CULTURE BLOOD [BC] Urgent Lab 04/05/21 11:40 Received CULTURE BLOOD [BC] Urgent Lab 04/05/21 12:07 Received Acetaminophen [TylenoL] Med 04/05/21 16:07 Ordered 650 mg PO Q3H PRN Albuterol/Ipratropium [DuoNeb 3.0-0.5 MG/3 ML] Med 04/05/21 16:20 Active 3 ml INH Q4H PRN Hyoscyamine [Hyomax-SL] Med 04/05/21 16:07 Ordered 0.125 mg SL Q4H PRN LORazepam [Ativan] Med 04/05/21 16:07 Ordered 0.5 mg PO Q4H PRN Lanolin/Min Oil/Petrolatum [Artificial Tears Ointment] Med 04/05/21 16:07 Ordered 1 gm EYEBOTH DAILY PRN Morphine [Morphine 10 MG/0.5 ML Oral Syringe] Med 04/05/21 16:07 Ordered 5 mg PO Q30M PRN Ondansetron [Zofran ODT] Med 04/05/21 16:07 Ordered 4 mg PO Q6H PRN Blood Culture x2 Reflex Set [OM.PC] Urgent Oth 04/05/21 11:28 Ordered Comfort Measures [OM.PC] Routine Oth 04/05/21 16:15 Ordered RT Suction Nasopharyngeal [RESPCARE] Routine Oth 04/05/21 16:10 Ordered Resuscitation Status Routine Resus Stat 04/05/21 16:07 Ordered EKG 12 Lead [EK] Routine Ther 04/05/21 11:28 Ordered EKG 12 Lead [EK] Routine Ther 04/05/21 14:15 Ordered Medication Orders Acetaminophen (Acetaminophen 325 Mg Tab) 650 mg PO Q3H PRN PRN Reason: Pain/Fever Albuterol/Ipratropium (Albuterol/Ipratropium 3.0-0.5 Mg/3 Ml Neb Soln) 3 ml INH Q4H PRN PRN Reason: SHORTNESS OF BREATH Artificial Tears (Lanolin/Mineral Oil/Petrolatum Ophth Oint 3.5 Gm Tube) 1 gm EYEBOTH DAILY PRN PRN Reason: Dry Eyes Hyoscyamine (Hyoscyamine 0.125 Mg Tab.Sl) 0.125 mg SL Q4H PRN PRN Reason: secretions Lorazepam (Lorazepam 0.5 Mg Tab) 0.5 mg PO Q4H PRN PRN Reason: Anxiety Morphine Sulfate (Morphine 10 Mg/0.5 Ml Oral Syringe) 5 mg PO Q30M PRN PRN Reason: MODERATE TO SEVERE PAIN/SOB Ondansetron HCl (Ondansetron 4 Mg Tab.Dis) 4 mg PO Q6H PRN PRN Reason: Nausea/Vomiting Assessment/Plan Comment:: 1. Admit for observation for comfort measures. 2. 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 3. Diet: regular. 4. Activity: as tolerated. 5. Discharge: Hospice to see tomorrow at 11 am, anticipate discharge in 24-48 hours. - Mortality Measure Prognosis:: Poor
[2021-04-06] MEDS: Morphine 10 MG/0.5 ML Oral Syringe PO PRN ×4 (05:28→16:24)
[2021-04-06] MEDS: LORazepam 0.5 MG Tab PO PRN (08:11)
--- NOTE | 2021-04-06 15:13 | PCM.PN ---
- General Info Date of Service: 04/06/21 Subjective Update: Wily having more pain with morning, had 2 doses of Morphine this morning. It is ordered 5 mg every 30 min as needed. Hospice met with family today, they are going to transfer him home tomorrow. Hospice will get necessary equipment to their apartment. He is high flow NC at 5L. Minimal urine output, 10 ml since Kent placed in ER. - Patient Data Vitals - Most Recent: Last Vital Signs Temp 97.8 F 04/05/21 19:45 Pulse 68 04/05/21 19:45 Resp 18 04/05/21 19:45 BP 80/50 L 04/05/21 19:45 Pulse Ox 92 L 04/05/21 19:45 Weight - Most Recent: 238 lb I&O - Last 24 Hours: Intake & Output 04/06/21 04/06/21 04/06/21 06:59 14:59 22:59 Output Total 10 Balance -10 Lab Results Last 24 Hours: Laboratory Results - last 24 hr 04/05/21 04/05/21 04/05/21 Range/Units 15:27 15:27 15:27 Sodium 136 (135-145) mmol/L Potassium 6.6 H* (3.5-5.3) mmol/L Chloride 96 L (100-110) mmol/L Carbon Dioxide 24 (21-32) mmol/L BUN 98 H (7-18) mg/dL Creatinine 5.2 H* (0.70-1.30) mg/dL Est Cr Clr Drug Dosing TNP Estimated GFR (MDRD) 11 L (>60) BUN/Creatinine Ratio 18.8 (9-20) Glucose 237 H (80-116) mg/dL Lactic Acid 2.5 H* (0.4-2.0) mmol/L Calcium 7.8 L (8.6-10.2) mg/dL Troponin I 341.3 H* (4.0-60.3) pg/mL Urine Color (YELLOW) Urine Appearance (CLEAR) Urine pH (5.0-6.5) Ur Specific [place] (1.010-1.025) Urine Protein (NEGATIVE) mg/dL Urine Glucose (UA) (NORMAL) mg/dL Urine Ketones (NEGATIVE) mg/dL Urine Occult Blood (NEGATIVE) Urine Nitrite (NEGATIVE) Urine Bilirubin (NEGATIVE) Urine Urobilinogen (NEGATIVE) mg/dL Ur Leukocyte Esterase (NEGATIVE) U Hyaline Cast (Auto) (NS) Urine RBC (0-5) Urine WBC (0-5) Ur Squamous Epith Cells (NS,R,O) Urine Bacteria (NS) 04/05/21 Range/Units 15:33 Sodium (135-145) mmol/L Potassium (3.5-5.3) mmol/L Chloride (100-110) mmol/L Carbon Dioxide (21-32) mmol/L BUN (7-18) mg/dL Creatinine (0.70-1.30) mg/dL Est Cr Clr Drug Dosing Estimated GFR (MDRD) (>60) BUN/Creatinine Ratio (9-20) Glucose (80-116) mg/dL Lactic Acid (0.4-2.0) mmol/L Calcium (8.6-10.2) mg/dL Troponin I (4.0-60.3) pg/mL Urine Color Yellow (YELLOW) Urine Appearance Slightly cloudy (CLEAR) Urine pH 5.0 (5.0-6.5) Ur Specific [place] 1.015 (1.010-1.025) Urine Protein 30 H (NEGATIVE) mg/dL Urine Glucose (UA) Normal (NORMAL) mg/dL Urine Ketones Negative (NEGATIVE) mg/dL Urine Occult Blood Moderate H (NEGATIVE) Urine Nitrite Negative (NEGATIVE) Urine Bilirubin Small H (NEGATIVE) Urine Urobilinogen Normal (NEGATIVE) mg/dL Ur Leukocyte Esterase Negative (NEGATIVE) U Hyaline Cast (Auto) Few H (NS) Urine RBC 5-10 H (0-5) Urine WBC 5-10 H (0-5) Ur Squamous Epith Cells Few H (NS,R,O) Urine Bacteria Many H (NS) [place] Results Last 24 Hours: Microbiology 04/05/21 12:07 Aerobic Blood Culture - Preliminary Blood - Venous - Lab Draw NO GROWTH AFTER 1 DAY Anaerobic Blood Culture - Preliminary NO GROWTH AFTER 1 DAY 04/05/21 11:40 Aerobic Blood Culture - Preliminary Blood - Venous NO GROWTH AFTER 1 DAY Anaerobic Blood Culture - Preliminary NO GROWTH AFTER 1 DAY Med Orders - Current: Current Medications Acetaminophen (Acetaminophen 325 Mg Tab) 650 mg PO Q3H PRN PRN Reason: Pain/Fever Albuterol/Ipratropium (Albuterol/Ipratropium 3.0-0.5 Mg/3 Ml Neb Soln) 3 ml INH Q4H PRN PRN Reason: SHORTNESS OF BREATH Artificial Tears (Lanolin/Mineral Oil/Petrolatum Ophth Oint 3.5 Gm Tube) 1 gm EYEBOTH DAILY PRN PRN Reason: Dry Eyes Hyoscyamine (Hyoscyamine 0.125 Mg Tab.Sl) 0.125 mg SL Q4H PRN PRN Reason: secretions Lorazepam (Lorazepam 0.5 Mg Tab) 0.5 mg PO Q4H PRN PRN Reason: Anxiety Last Admin: 04/06/21 08:11 Dose: 0.5 mg Documented by: Morphine Sulfate (Morphine 10 Mg/0.5 Ml Oral Syringe) 5 mg PO Q30M PRN PRN Reason: MODERATE TO SEVERE PAIN/SOB Last Admin: 04/06/21 09:03 Dose: 5 mg Documented by: Ondansetron HCl (Ondansetron 4 Mg Tab.Dis) 4 mg PO Q6H PRN PRN Reason: Nausea/Vomiting Senna/Docusate Sodium (Docusate Sodium/Sennosides 50-8.6 Mg Tab) 2 tab PO BID ANGEL Last Admin: 04/06/21 12:07 Dose: 2 tab Documented by: Discontinued Medications Dextrose/Water (50% Dextrose In Water 50 Ml Syringe) 50 ml IVPUSH ONETIME ONE Stop: 04/05/21 12:52 Last Admin: 04/05/21 13:45 Dose: 50 ml Documented by: Dextrose/Water (50% Dextrose In Water 50 Ml Syringe) 50 ml IVPUSH ASDIRECTED PRN PRN Reason: Hypoglycemia Glucagon (Glucagon,Human Recombinant 1 Mg Vial) 1 mg IM ASDIRECTED PRN PRN Reason: Hypoglycemia Nitroglycerin/Dextrose (Nitroglycerin 25 Mg/D5w 250 Ml) Confirm Administered Dose 25 mg in 250 mls @ as directed .ROUTE .STK-MED ONE Stop: 04/05/21 11:49 Last Admin: 04/05/21 17:52 Dose: Not Given Documented by: Piperacillin Sod/Tazobactam (Sod 4.5 gm/ Sodium Chloride) 100 mls @ 200 mls/hr IV NOW ONE Stop: 04/05/21 12:47 Last Admin: 04/05/21 12:39 Dose: 200 mls/hr Documented by: Sodium Chloride (Normal Saline) 500 mls @ 999 drops/hr IV .BOLUS ONE Stop: 04/05/21 20:06 Last Admin: 04/05/21 12:36 Dose: 999 drops/hr Documented by: Sodium Chloride (Normal Saline) 500 mls @ 500 mls/hr IV .BOLUS ONE Stop: 04/05/21 14:00 Last Admin: 04/05/21 13:01 Dose: 500 mls/hr Documented by: Sodium Chloride (Normal Saline) 1,000 mls @ 999 mls/hr IV .BOLUS ONE Stop: 04/05/21 14:17 Last Admin: 04/05/21 13:45 Dose: 999 mls/hr Documented by: Insulin Human Regular (Insulin Regular, Human 100 Units/Ml 3 Ml Vial) 10 unit IV ONETIME ONE Stop: 04/05/21 12:53 Last Admin: 04/05/21 13:45 Dose: 10 units Documented by: Lidocaine HCl (Lidocaine 2% Hcl 6 Ml Jel.Pf.Cassie) Confirm Administered Dose 6 ml .ROUTE .STK-MED ONE Stop: 04/05/21 12:52 Sodium Polystyrene Sulfonate (Sodium Polystyrene Sulfonate 15 Gm/60 Ml Susp 60 Ml Bot) 15 gm PO ONETIME STA Stop: 04/05/21 13:43 Last Admin: 04/05/21 13:45 Dose: 15 gm Documented by: - Exam Lungs: Decreased Breath Sounds, Crackles (bilateral). No: Normal Respiratory Effort Cardiovascular: Regular Rate, Regular Rhythm GI/Abdominal Exam: Normal Bowel Sounds, Soft, Non-Tender, No Distention Extremities: Mottled, Pallor - Patient Data Lab Results Last 24 hrs: Laboratory Results - last 24 hr 04/05/21 04/05/21 04/05/21 Range/Units 15:27 15:27 15:27 Sodium 136 (135-145) mmol/L Potassium 6.6 H* (3.5-5.3) mmol/L Chloride 96 L (100-110) mmol/L Carbon Dioxide 24 (21-32) mmol/L BUN 98 H (7-18) mg/dL Creatinine 5.2 H* (0.70-1.30) mg/dL Est Cr Clr Drug Dosing TNP Estimated GFR (MDRD) 11 L (>60) BUN/Creatinine Ratio 18.8 (9-20) Glucose 237 H (80-116) mg/dL Lactic Acid 2.5 H* (0.4-2.0) mmol/L Calcium 7.8 L (8.6-10.2) mg/dL Troponin I 341.3 H* (4.0-60.3) pg/mL Urine Color (YELLOW) Urine Appearance (CLEAR) Urine pH (5.0-6.5) Ur Specific [place] (1.010-1.025) Urine Protein (NEGATIVE) mg/dL Urine Glucose (UA) (NORMAL) mg/dL Urine Ketones (NEGATIVE) mg/dL Urine Occult Blood (NEGATIVE) Urine Nitrite (NEGATIVE) Urine Bilirubin (NEGATIVE) Urine Urobilinogen (NEGATIVE) mg/dL Ur Leukocyte Esterase (NEGATIVE) U Hyaline Cast (Auto) (NS) Urine RBC (0-5) Urine WBC (0-5) Ur Squamous Epith Cells (NS,R,O) Urine Bacteria (NS) 04/05/21 Range/Units 15:33 Sodium (135-145) mmol/L Potassium (3.5-5.3) mmol/L Chloride (100-110) mmol/L Carbon Dioxide (21-32) mmol/L BUN (7-18) mg/dL Creatinine (0.70-1.30) mg/dL Est Cr Clr Drug Dosing Estimated GFR (MDRD) (>60) BUN/Creatinine Ratio (9-20) Glucose (80-116) mg/dL Lactic Acid (0.4-2.0) mmol/L Calcium (8.6-10.2) mg/dL Troponin I (4.0-60.3) pg/mL Urine Color Yellow (YELLOW) Urine Appearance Slightly cloudy (CLEAR) Urine pH 5.0 (5.0-6.5) Ur Specific [place] 1.015 (1.010-1.025) Urine Protein 30 H (NEGATIVE) mg/dL Urine Glucose (UA) Normal (NORMAL) mg/dL Urine Ketones Negative (NEGATIVE) mg/dL Urine Occult Blood Moderate H (NEGATIVE) Urine Nitrite Negative (NEGATIVE) Urine Bilirubin Small H (NEGATIVE) Urine Urobilinogen Normal (NEGATIVE) mg/dL Ur Leukocyte Esterase Negative (NEGATIVE) U Hyaline Cast (Auto) Few H (NS) Urine RBC 5-10 H (0-5) Urine WBC 5-10 H (0-5) Ur Squamous Epith Cells Few H (NS,R,O) Urine Bacteria Many H (NS) Result Diagrams: 04/05/21 11:40 04/05/21 15:27 [place] Results Last 24 hrs: Microbiology 04/05/21 12:07 Aerobic Blood Culture - Preliminary Blood - Venous - Lab Draw NO GROWTH AFTER 1 DAY Anaerobic Blood Culture - Preliminary NO GROWTH AFTER 1 DAY 04/05/21 11:40 Aerobic Blood Culture - Preliminary Blood - Venous NO GROWTH AFTER 1 DAY Anaerobic Blood Culture - Preliminary NO GROWTH AFTER 1 DAY Sepsis Event Note - Evaluation Sepsis Screening Result: No Definite Risk - Problem List & Annotations (1) Metastatic lung cancer (metastasis from lung to other site) SNOMED Code(s): 98988559, 147538934 Code(s): C34.90 - MALIGNANT NEOPLASM OF UNSP PART OF UNSP BRONCHUS OR LUNG Status: Acute Current Visit: Yes Onset Date: ~02/2021 Qualifiers: Laterality: right Qualified Code(s): C34.91 - Malignant neoplasm of unspecified part of right bronchus or lung (2) Multisystem organ failure SNOMED Code(s): 96132243 Code(s): LEA6109 - Status: Acute Current Visit: Yes (3) NSTEMI (non-ST elevated myocardial infarction) SNOMED Code(s): 05789799 Code(s): I21.4 - NON-ST ELEVATION (NSTEMI) MYOCARDIAL INFARCTION Status: Acute Current Visit: Yes (4) Comfort measures only status SNOMED Code(s): 65281985536170 Code(s): Z51.5 - ENCOUNTER FOR PALLIATIVE CARE Status: Acute Current Visit: Yes - Problem List Review Problem List Initiated/Reviewed/Updated: Yes - My Orders Last 24 Hours: My Active Orders 04/05/21 16:07 Acetaminophen [TylenoL] 650 mg PO Q3H PRN Hyoscyamine [Hyomax-SL] 0.125 mg SL Q4H PRN LORazepam [Ativan] 0.5 mg PO Q4H PRN Lanolin/Min Oil/Petrolatum [Artificial Tears Ointment] 1 gm EYEBOTH DAILY PRN Morphine [Morphine 10 MG/0.5 ML Oral Syringe] 5 mg PO Q30M PRN Ondansetron [Zofran ODT] 4 mg PO Q6H PRN Resuscitation Status Routine 04/05/21 16:10 Oxygen Therapy [RC] PRN RT Suction Nasopharyngeal [RESPCARE] Routine 04/05/21 16:15 Activity as Tolerated [RC] .Routine Regular Diet [DIET] Comfort Measures [OM.PC] Routine 04/05/21 16:17 Communication Order [RC] Per Unit Routine Turn and Reposition [RC] Q2HR 04/05/21 16:20 Albuterol/Ipratropium [DuoNeb 3.0-0.5 MG/3 ML] 3 ml INH Q4H PRN 04/06/21 11:30 Docusate Sodium/Sennosides [Senna Plus] 2 tab PO BID - Plan Plan:: 1. 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 Senna-S 2 tab bid for constipation. 2. Discharge: Discharge to Hospice tomorrow at 11 am.
[2021-04-07] MEDS: Morphine 10 MG/0.5 ML Oral Syringe PO PRN ×4 (00:19→09:25)
[2021-04-07] MEDS: LORazepam 0.5 MG Tab PO PRN (07:53)
[2021-04-07] MEDS ORDERED: Dexamethasone 4 MG Tab PO ONE (08:45)
--- NOTE | 2021-04-07 11:15 | PCM.DCSUM1 ---
Discharge Summary - Hospital Course HPI Initial Comments: Wily presented to ER today for worsening shortness of breath and back pain, rapid response was called by EMS enroute and was in acute respiratory failure, heart/liver and kidney failure. ABG showed ph 7.2, K 7.7, Cr 5.2, Troponin 546, proBNP 10475, WBC 13.3. EKG showed injury pattern in V1-V3, no comparison. He was due to start chemo today for RLL lung mass 1 month ago, PET scan 5 days ago showed involvement of mediastinum, hilum, abdominal lymph nodes, liver and bone. Had more shortness of breath, leg swelling and back pain for the past 3 days, no appetite, not eating. He did take his medications today. Yoli was placed in ER, has not had a bowel movement today. He is DNR/DNI, he was in ER most of day, with multiorgan failure and lung cancer with mets, he and his requested to stay here and go on hospice. Hospice was contacted and they will come in tomorrow to do initial visit with Wily and his family. Diagnosis: Stroke: No - Discharge Data Discharge Date: 04/07/21 Discharge Disposition: DC/Tfer to Hospice - Home 49 Condition: Stable - Referral to Home Health Date of Face to Face Encounter: 04/07/21 Reason for Homebound Status: Hospice Primary Care Physician: Arthur Pizarro MD Skilled Need: Hospice - Discharge Diagnosis/Problem(s) (1) Metastatic lung cancer (metastasis from lung to other site) SNOMED Code(s): 50852014, 614912190 ICD Code: C34.90 - MALIGNANT NEOPLASM OF UNSP PART OF UNSP BRONCHUS OR LUNG Status: Acute Current Visit: Yes Onset Date: ~02/2021 Qualifiers: Laterality: right Qualified Code(s): C34.91 - Malignant neoplasm of unspecified part of right bronchus or lung (2) Multisystem organ failure SNOMED Code(s): 61622742 ICD Code: DKY6325 - Status: Acute Current Visit: Yes (3) NSTEMI (non-ST elevated myocardial infarction) SNOMED Code(s): 27993165 ICD Code: I21.4 - NON-ST ELEVATION (NSTEMI) MYOCARDIAL INFARCTION Status: Acute Current Visit: Yes (4) Comfort measures only status SNOMED Code(s): 50856593536922 ICD Code: Z51.5 - ENCOUNTER FOR PALLIATIVE CARE Status: Acute Current Visit: Yes - Patient Summary/Data Hospital Course: Wily was admitted for comfort measures after sustaining myocardial infarct with multiorgan failure. He also has underlying right lung cancer with metastasis to lymph nodes in hilum and abdomen, liver and bone, he had not started treatment for this yet. He has gotten 2 doses of Ativan, 4 doses of Morphine on 04/06 and 04/07, Senna-S was started yesterday and has had 3 doses. He was taking Dexamethasone as outpatient so that was restarted today 4 mg this morning and ordered 4 mg bid(home medication) on discharge, Hospice will adjust this as needed. He did not require any DuoNebs, Tylenol or Hyoscyamine during hospital stay. He is being admitted to [facility] for end of life cares today, he will go by transport home. - Patient Instructions Diet: Usual Diet as Tolerated Activity: Bedrest Driving: Do Not Drive Other/Special Instructions: Admit to Hospice for end of life cares - Discharge Plan *PRESCRIPTION DRUG MONITORING PROGRAM REVIEWED*: Not Applicable *COPY OF PRESCRIPTION DRUG MONITORING REPORT IN PATIENT [place]: Not Applicable Prescriptions/Med Rec: dexAMETHasone [Dexamethasone] 4 mg PO BID #2 tab Home Medications: Home Meds Acetaminophen [Tylenol] 650 mg PO Q3H PRN tablet 04/07/21 [Rx] Albuterol/Ipratropium [DuoNeb 3.0-0.5 MG/3 ML] 3 ml INH Q4H PRN neb 04/07/21 [Rx] Docusate Sodium/Sennosides [Senna Plus] 2 tab PO BID tablet 04/07/21 [Rx] Hyoscyamine [Hyomax-SL] 0.125 mg SL Q4H PRN tab.sl 04/07/21 [Rx] LORazepam [Ativan] 0.5 mg PO Q4H PRN tablet 04/07/21 [Rx] Lanolin/Min Oil/Petrolatum [Artificial Tears Ointment] 1 gm EYEBOTH DAILY PRN tube 04/07/21 [Rx] Morphine [Morphine 10 MG/0.5 ML Oral Syringe] 5 mg PO Q30M PRN syringe 04/07/21 [Rx] Ondansetron [Zofran ODT] 4 mg PO Q6H PRN tab.dis 04/07/21 [Rx] dexAMETHasone [Dexamethasone] 4 mg PO BID #2 tab 04/07/21 [Rx] Oxygen Therapy Mode: Nasal Cannula Forms: ED Department Discharge Referrals: Arthur Pizarro MD [Ordering Only Provider] - - Discharge Summary/Plan Comment DC Time >30 min.: No - General Info Date of Service: 04/07/21 Subjective Update: Wily is uncomfortable this morning, leaning against right side rail when first walked into room, couldn't get comfortable. Having more back pain. Has been eating ice chips, prune juice and some milk this morning but no solid food. Oxygen in 90s on 5 L high flow nasal cannula. - Patient Data Vitals - Most Recent: Last Vital Signs Temp 98.1 F 04/07/21 08:00 Pulse 72 04/07/21 08:00 Resp 20 04/07/21 08:00 BP 91/47 L 04/07/21 08:00 Pulse Ox 90 L 04/07/21 08:00 Weight - Most Recent: 238 lb I&O - Last 24 hours: Intake & Output 04/06/21 04/07/21 04/07/21 22:59 06:59 14:59 Output Total 50 75 Balance -50 -75 [place] Results - Last 24 hrs: Microbiology 04/05/21 15:33 Urine Culture - Preliminary Urine, Clean Catch NO GROWTH AFTER 1 DAY 04/05/21 12:07 Aerobic Blood Culture - Preliminary Blood - Venous - Lab Draw NO GROWTH AFTER 1 DAY Anaerobic Blood Culture - Preliminary NO GROWTH AFTER 1 DAY 04/05/21 11:40 Aerobic Blood Culture - Preliminary Blood - Venous NO GROWTH AFTER 1 DAY Anaerobic Blood Culture - Preliminary NO GROWTH AFTER 1 DAY Med Orders - Current: Current Medications Acetaminophen (Acetaminophen 325 Mg Tab) 650 mg PO Q3H PRN PRN Reason: Pain/Fever Albuterol/Ipratropium (Albuterol/Ipratropium 3.0-0.5 Mg/3 Ml Neb Soln) 3 ml INH Q4H PRN PRN Reason: SHORTNESS OF BREATH Artificial Tears (Lanolin/Mineral Oil/Petrolatum Ophth Oint 3.5 Gm Tube) 1 gm EYEBOTH DAILY PRN PRN Reason: Dry Eyes Hyoscyamine (Hyoscyamine 0.125 Mg Tab.Sl) 0.125 mg SL Q4H PRN PRN Reason: secretions Lorazepam (Lorazepam 0.5 Mg Tab) 0.5 mg PO Q4H PRN PRN Reason: Anxiety Last Admin: 04/07/21 07:53 Dose: 0.5 mg Documented by: Morphine Sulfate (Morphine 10 Mg/0.5 Ml Oral Syringe) 5 mg PO Q30M PRN PRN Reason: MODERATE TO SEVERE PAIN/SOB Last Admin: 04/07/21 09:25 Dose: 5 mg Documented by: Ondansetron HCl (Ondansetron 4 Mg Tab.Dis) 4 mg PO Q6H PRN PRN Reason: Nausea/Vomiting Senna/Docusate Sodium (Docusate Sodium/Sennosides 50-8.6 Mg Tab) 2 tab PO BID ANGEL Last Admin: 04/07/21 08:01 Dose: 2 tab Documented by: Discontinued Medications Dexamethasone (Dexamethasone 4 Mg Tab) 4 mg PO ONETIME ONE Stop: 04/07/21 08:46 Last Admin: 04/07/21 09:12 Dose: 4 mg Documented by: Dextrose/Water (50% Dextrose In Water 50 Ml Syringe) 50 ml IVPUSH ONETIME ONE Stop: 04/05/21 12:52 Last Admin: 04/05/21 13:45 Dose: 50 ml Documented by: Dextrose/Water (50% Dextrose In Water 50 Ml Syringe) 50 ml IVPUSH ASDIRECTED PRN PRN Reason: Hypoglycemia Glucagon (Glucagon,Human Recombinant 1 Mg Vial) 1 mg IM ASDIRECTED PRN PRN Reason: Hypoglycemia Nitroglycerin/Dextrose (Nitroglycerin 25 Mg/D5w 250 Ml) Confirm Administered Dose 25 mg in 250 mls @ as directed .ROUTE .STK-MED ONE Stop: 04/05/21 11:49 Last Admin: 04/05/21 17:52 Dose: Not Given Documented by: Piperacillin Sod/Tazobactam (Sod 4.5 gm/ Sodium Chloride) 100 mls @ 200 mls/hr IV NOW ONE Stop: 04/05/21 12:47 Last Admin: 04/05/21 12:39 Dose: 200 mls/hr Documented by: Sodium Chloride (Normal Saline) 500 mls @ 999 drops/hr IV .BOLUS ONE Stop: 04/05/21 20:06 Last Admin: 04/05/21 12:36 Dose: 999 drops/hr Documented by: Sodium Chloride (Normal Saline) 500 mls @ 500 mls/hr IV .BOLUS ONE Stop: 04/05/21 14:00 Last Admin: 04/05/21 13:01 Dose: 500 mls/hr Documented by: Sodium Chloride (Normal Saline) 1,000 mls @ 999 mls/hr IV .BOLUS ONE Stop: 04/05/21 14:17 Last Admin: 04/05/21 13:45 Dose: 999 mls/hr Documented by: Insulin Human Regular (Insulin Regular, Human 100 Units/Ml 3 Ml Vial) 10 unit IV ONETIME ONE Stop: 04/05/21 12:53 Last Admin: 04/05/21 13:45 Dose: 10 units Documented by: Lidocaine HCl (Lidocaine 2% Hcl 6 Ml Jel.Pf.Cassie) Confirm Administered Dose 6 ml .ROUTE .STK-MED ONE Stop: 04/05/21 12:52 Sodium Polystyrene Sulfonate (Sodium Polystyrene Sulfonate 15 Gm/60 Ml Susp 60 Ml Bot) 15 gm PO ONETIME STA Stop: 04/05/21 13:43 Last Admin: 04/05/21 13:45 Dose: 15 gm Documented by: - Exam General: Reports: Alert, Oriented, Mild Distress Lungs: Reports: Decreased Breath Sounds (BLL, RML). Denies: Normal Respiratory Effort (increased), Wheezing Cardiovascular: Reports: Regular Rate (distant) GI/Abdominal Exam: Soft, No Distention, Abnormal Bowel Sounds (hypoactive BS x 4. ). No: Guarding Extremities: Pedal Edema, Pallor *Q Meaningful Use (DIS) - VTE *Q VTE Mechanical Contraindications *Q: At Risk for Falls
[2021-04-09] MEDS ORDERED: Lidocaine 2% HCl 6 ML JEL.PF.APP MM ONE (10:53)
== END 2021-04-07 12:06 | disposition hospice, home (50) ==
LOC: FB.ED 11:24 → FB.MS 15:49
PROVIDERS: ADMIT Family Medicine; ATTEND Family Medicine
DX: J96.02 Acute respiratory failure with hypercapnia (principal); C34.31 Malignant neoplasm of lower lobe, right bronchus or lung; C78.7 Secondary malignant neoplasm of liver and intrahepatic bile duct; C79.51 Secondary malignant neoplasm of bone; C77.9 Secondary and unspecified malignant neoplasm of lymph node, unspecified; K72.90 Hepatic failure, unspecified without coma; I11.0 Hypertensive heart disease with heart failure; I50.9 Heart failure, unspecified; I21.4 Non-ST elevation (NSTEMI) myocardial infarction; N17.9 Acute kidney failure, unspecified; Z51.5 Encounter for palliative care; E78.00 Pure hypercholesterolemia, unspecified; E11.9 Type 2 diabetes mellitus without complications; Z79.82 Long term (current) use of aspirin; Z79.899 Other long term (current) drug therapy; Z99.81 Dependence on supplemental oxygen; Z95.1 Presence of aortocoronary bypass graft
CPT/HCPCS: 36415; 51702; 71045; 80048; 80053; 81001; 83605; 83880; 84484; 85025; 85610; 86140; 87040; 87086; 93005; 96365; 96375; 99285-25; A9270-GY; G0378; J1815-GY; J2543; J7030; J7040; J8540